=== PATIENT | female | born 1990 | race Two or more races ===

== ENCOUNTER 2025-06-05 15:33 | Emergency (ER) | payer MEDICAID ==
[~2025-06-05] VITALS: Ht 167.6 cm; Wt 78.5 kg
[2025-06-05 17:07] VITALS: BP 128/74; TEMP 97.9; O2SAT 97
== END 2025-06-05 17:08 | disposition home or self-care (01) ==
LOC: ER 15:39
DX: F41.1 Generalized anxiety disorder (principal); G47.00 Insomnia, unspecified; F22 Delusional disorders; F20.9 Schizophrenia, unspecified; Z88.0 Allergy status to penicillin; Z20.822 Contact with and (suspected) exposure to COVID-19